=== PATIENT | male | born 1990 | race Caucasian/White ===

== ENCOUNTER 2018-08-21 12:35 | Emergency (ER) | payer MEDICAID, SELFPAY ==
[2018-08-21 12:35] VITALS: BP 130/76; PULSE 88; RESP 19; TEMP 37.2; O2SAT 96; BMI 29.7
--- NOTE | 2018-08-21 12:47 | ED.VISSUMM ---
- ER Visit Summary Date of Service: 08/21/18 Chief Complaint: [] History of Present Illness: The patient is a 27 M sore throat presents to the emergency department sore throat. Patient had symptoms for the past 6 days. He states his been worsening. He denies any fevers. He denies any chills or sweats. He does admit to some pain with swallowing but is still able to eat and drink. [place] any trouble laying flat. He has no history of immunosuppression. Is not on anything for the symptoms. He is unsure if he had strep before in the past. Physical Examination: Exam is relatively unremarkable. Posterior oropharynx is widely patent. Uvula is midline. There is no evidence of retropharyngeal or peritonsillar abscess. There is exudate on both tonsils. He has anterior lymphadenopathy. His neck is supple. There is no trismus or stridor. Test Results: [] Emergency Department Course and Treatment: Patient has exudative pharyngitis without evidence of abscess. Will treat with Decadron and Augmentin. Is given his first dose here. He is counseled concerning symptoms, symptoms to watch for, reasons to return. He will be discharged home. Treatment Plan: [] Disposition: Discharge Impression: 1. Exudative pharyngitis This note was generated with [employer] dictation software. It may contain incorrect words, spelling, and punctuation that were not noted in review of the chart prior to signing ED Disposition - Plan for ED Patient: Instructions: ED Strep Pharyngitis Conf Prescriptions: Amox/Clavulanate Tablet [Augmentin Tablet] 875 mg PO Q12H #20 tab Referrals: Care Physician,No Primary [Primary Care Provider] -
[2018-08-21] MEDS: dexAMETHasone 10 MG/ML Vial PO.IVFORM (13:01)
[2018-08-21] MEDS: Amox/Clavulanate 875 MG Tablet PO (13:01)
== END 2018-08-21 13:39 | disposition home or self-care (01) ==
LOC: ED 13:14
PROVIDERS: Emergency Provider Emergency Medicine
DX: J02.9 Acute pharyngitis, unspecified (principal); Z72.0 Tobacco use
CPT/HCPCS: 99283

== ENCOUNTER 2018-10-10 19:48 | Emergency (ER) | payer MEDICAID, SELFPAY ==
[2018-10-10 19:49] VITALS: BP 135/81; PULSE 81; RESP 18; TEMP 36.2; O2SAT 96; BMI 28.0
--- NOTE | 2018-10-10 21:43 | ED.DCSUM_ITS ---
- ER Visit Summary Date of Service: 10/10/18 Chief Complaint: Sore throat History of Present Illness: The patient is a 28 M who presents emergency department with a 2-day history of a sore throat. He denies any cough or rhinorrhea. No fevers. Notes some swollen lymph nodes in his neck. Notes the corners of his lips are cracked. He on Suboxone but no other prescription medications. He has no doctor. States he was seen last month and diagnosed with strep throat. He got better but symptoms have returned. Physical Examination: Afebrile vital signs stable Gen: Well-nourished well-developed Head: Normocephalic atraumatic Eyes: Perrl EOMI ENT: TMs clear no rhinorrhea moist mucous membranes bilateral tonsillar enlargement with exudate pharyngeal erythema Neck: Supple small mobile tender anterior lymph nodes no JVD nontender CVS: Regular rate rhythm no murmurs normal S1-S2 Respiratory: No distress clear to auscultation bilaterally chest nontender Abdomen: Soft nontender nondistended normal bowel sounds no masses Back: Nontender Extremity: Nontender no edema Skin: Normal color no rash Neuro: alert orientated ?3 CN II-XII intact normal strength sensation reflexes gait cerebellar Psych: Normal affect normal mood Emergency Department Course and Treatment: Review of chart shows the patient was treated with Augmentin. He states he took the entire course. Today we are going to treat with Omnicef. Also give him a dose of Decadron. Follow-up with primary care if not improving Impression: 1. Acute pharyngitis This note was generated with [employer] dictation software. It may contain incorrect words, spelling, and punctuation that were not noted in review of the chart prior to signing ED Disposition - Plan for ED Patient: Disposition: Home or Assisted Living Instructions: PHARYNGITIS, Report Pending Prescriptions: Cefdinir 300 mg PO BID #19 cap Prescription Printed Referrals: Michael Bardales III, MD [STAFF PHYSICIAN] - As Needed
[2018-10-10] MEDS: Cefdinir 300 MG Capsule PO (21:47)
[2018-10-10] MEDS: dexAMETHasone 10 MG/ML Vial PO.IVFORM (21:49)
== END 2018-10-10 21:51 | disposition home or self-care (01) ==
PROVIDERS: Emergency Provider Emergency Medicine
DX: J02.9 Acute pharyngitis, unspecified (principal)
CPT/HCPCS: 99283

== ENCOUNTER 2019-07-28 08:43 | Emergency (ER) | payer MEDICAID, SELFPAY ==
[2019-07-28 08:45] VITALS: BP 132/86; PULSE 78; RESP 17; TEMP 36.4; O2SAT 96; BMI 29.6
--- NOTE | 2019-07-28 09:07 | ED.VISSUMM ---
- ER Visit Summary Date of Service: 07/28/19 Chief Complaint: Back pain History of Present Illness: The patient is a 28 M who presents with back pain that began yesterday. Patient states it became worse today. Patient states the pain is worse whenever he moves certain ways and bending forward. Patient states his pain improves when he sits up. Patient states pain does radiate to both lower extremities. Patient admits to some tingling. Patient denies any weakness. Patient denies any bowel or bladder changes. Patient denies any saddle anesthesia. Patient denies any trauma or injury. Patient states he has been doing some different things at work and feels this may have aggravated it. Physical Examination: Vital signs are stable. Patient is afebrile. Patient is in no acute distress. Musculoskeletal exam reveals tenderness over the lumbar spine and paraspinal muscles. There is no edema or ecchymosis. There is no bony crepitance or step-off. There is some spasm of the lumbar paraspinal muscles. There is some old limitation of flexion secondary to pain. The motion was otherwise normal. Straight leg raises were negative bilaterally. Strength is 5/5 bilateral in lower extremities. There are no sensory deficits noted. Deep tendon reflexes are 2/4 bilaterally in the lower extremities. Emergency Department Course and Treatment: Patient was given injection of Toradol here. Patient was given a prescription for Naprosyn. Patient was instructed use ice to the area. Patient was given a note for work for today and was restricted with his bending and lifting starting tomorrow. Patient was referred to a primary care physician for follow-up care and 5 to 7 days. Patient understood and was agreeable with the plan. All questions were answered. Disposition: Discharge home Impression: Lumbosacral strain This note was generated with [employer] dictation software. It may contain incorrect words, spelling, and punctuation that were not noted in review of the chart prior to signing ED Disposition - Plan for ED Patient: Disposition: Home or Assisted Living Diagnosis: Lumbosacral strain Instructions: ED LUMBAR SPRAIN/STRAIN Prescriptions: Naproxen [Naprosyn] 500 mg PO BID PRN #20 tab Prescription Printed Referrals: Care Physician,No Primary [Primary Care Provider] - Gerardo Rolon MD [STAFF PHYSICIAN] - 5-7 Days
[2019-07-28] MEDS: Ketorolac 60 MG/2 ML Vial IM (09:26)
== END 2019-07-28 09:37 | disposition home or self-care (01) ==
LOC: ED 09:26
PROVIDERS: Emergency Provider Emergency Medicine
DX: S39.012A Strain of muscle, fascia and tendon of lower back, initial encounter (principal); F17.200 Nicotine dependence, unspecified, uncomplicated; X58.XXXA Exposure to other specified factors, initial encounter
CPT/HCPCS: 96372; 99282

== ENCOUNTER 2019-08-09 10:47 | Emergency (ER) | payer MEDICAID, SELFPAY ==
[2019-08-09 10:48] VITALS: BP 155/98; PULSE 75; RESP 14; TEMP 36.1; O2SAT 100
--- NOTE | 2019-08-09 11:29 | ED.DCSUM_ITS ---
- ER Visit Summary Date of Service: 08/09/19 Chief Complaint: Low back pain History of Present Illness: The patient is a 28 M treated low back pain. Patient states he has this daily. He has had back pain for about 12 years. Denies any recent falls or trauma. No fever. States sometimes he gets pain radiating to his buttocks or posterior hamstrings bilaterally. Denies any bowel or bladder incontinence. Denies any weakness or numbness. Denies any prior back surgery. Physical Examination: Young male no acute distress. Vital signs are stable afebrile. H EENT exam unremarkable. Neck nontender. Lungs clear to auscultation bilaterally. Heart regular rhythm no murmur. Abdomen soft nontender no bowel sounds no peritoneal signs. Extremities moves all 4. Neurovascular intact. 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 Dorsi plantarflexion intact. Cauda equina. No saddle anesthesia. Normal medial thigh and lower leg sensation. Negative straight leg raise bilaterally. Back he describes the pain over his lumbar spine but there is no reproducible tenderness. There is no signs of trauma. There is no redness, warmth or bruising. Neurologically is awake and alert with no focal or or sensory deficits. Test Results: None Emergency Department Course and Treatment: Patient describes muscle skeletal back pain. I explained to him that at this time he did not warrant an MRI but if this was not improving he would need to have that determined an outpatient follow-up. Treatment Plan: Naprosyn for pain. Follow-up with the [facility]. Disposition: Discharge Impression: Acute musculoskeletal lumbar back pain This note was generated with [employer] dictation software. It may contain incorrect words, spelling, and punctuation that were not noted in review of the chart prior to signing ED Disposition - Plan for ED Patient: Referrals: Care Physician,No Primary [Primary Care Provider] -
--- NOTE | 2019-08-09 11:33 | ED.DEP ---
ED Disposition - Plan for ED Patient: Disposition: Home or Assisted Living Instructions: ED Back Pain Acute or Chronic Prescriptions: Naproxen [Naprosyn] 500 mg PO BID PRN #20 tab Prescription Printed Additional Instructions: Naprosyn for pain. Call and follow-up with [facility] the [facility] from the hospital. There is specifically set up for uninsured and underinsured patients. Light duty at work with no lifting more than 10 pounds for the next week.
== END 2019-08-09 11:40 | disposition home or self-care (01) ==
PROVIDERS: Emergency Provider Emergency Medicine
DX: M54.5 Low back pain (principal); F17.200 Nicotine dependence, unspecified, uncomplicated
CPT/HCPCS: 99282